=== PATIENT | female | born 1970 | race African-American/Black ===

== ENCOUNTER 2021-06-28 09:30 | Outpatient (RCR) | payer OTHER, SELFPAY ==
--- NOTE | 2021-04-23 14:05 | STOPEVAL ---
COMMUNICATION EVALUATION Thank you for referring Nisha Butts to [facility].? The patient is scheduled to be seen for therapy? 2x/week for 2 weeks. Please review, sign, date and return this plan of care ROSSY. I agree with and certify that the following plan of care is medically necessary. Referring Physician Date Attending Provider: PHYSICIAN NOT ON STAFF Therapy Assessment Status Assessment Status Assessment Status Evaluation Outpatient Past Medical History Past Medical History Source of Past Medical History Patient Neurological History Hx Cerebrovascular Accident (CVA) Yes: March 12, 2021 CVA , possible TIA/CVA weeks prior to this CVA? Cardiovascular History Hx Cardiac Disorders No Significant History Respiratory History Hx Respiratory Disorders No Significant History Gastrointestinal History Hx Gastrointestinal Disorders No Significant History Genitourinary History Hx Genitourinary Disorders No Significant History Musculoskeletal History Hx Musculoskeletal Disorders No Significant History Hematological History Hx Hematological Disorders No Significant History Endocrine History Hx Diabetes Yes: 07/2017 HEENT History Hx HEENT Disorders No Significant History Integumentary History Hx Skin Disorders No Significant History Reproductive History Hx Reproductive Disorders No Significant History Psychosocial History Hx Psychiatric Disorders No Significant History Pain History History of Any Previous or Ongoing No Significant History Instance of Pain Anesthesia History Hx Anesthesia Reactions No Significant History Evaluation Information Problem Diagnosis CVA Onset 03/12/21 Additional Evaluation Detail See Subjective Information Subjective Information Patient reports she woke up Query Text:As Reported By Patient/ the morning of the , tried Family to get up to go to the bathroom and realized she could not stand up. Reports her words were slurred and her tongue was tied up. Recalls everything but was unable speak. Reports her 16 year old daughter walked her to the car and brought her to the hospital. Patient went to [facility] and then was taken by ambulance to [facility] where she remained until the , then moved to the Rehabilitation department and stayed there until
--- NOTE | 2021-04-23 14:07 | STOPEVAL ---
COMMUNICATION EVALUATION Thank you for referring Nisha Butts to [facility].? The patient is scheduled to be seen for therapy? 2x/week for 2 weeks. Please review, sign, date and return this plan of care ROSSY. I agree with and certify that the following plan of care is medically necessary. Referring Physician Date Attending Provider: PHYSICIAN NOT ON STAFF Therapy Assessment Status Assessment Status Assessment Status Evaluation Outpatient Past Medical History Past Medical History Source of Past Medical History Patient Neurological History Hx Cerebrovascular Accident (CVA) Yes: March 12, 2021 CVA , possible TIA/CVA weeks prior to this CVA? Cardiovascular History Hx Cardiac Disorders No Significant History Respiratory History Hx Respiratory Disorders No Significant History Gastrointestinal History Hx Gastrointestinal Disorders No Significant History Genitourinary History Hx Genitourinary Disorders No Significant History Musculoskeletal History Hx Musculoskeletal Disorders No Significant History Hematological History Hx Hematological Disorders No Significant History Endocrine History Hx Diabetes Yes: 07/2017 HEENT History Hx HEENT Disorders No Significant History Integumentary History Hx Skin Disorders No Significant History Reproductive History Hx Reproductive Disorders No Significant History Psychosocial History Hx Psychiatric Disorders No Significant History Pain History History of Any Previous or Ongoing No Significant History Instance of Pain Anesthesia History Hx Anesthesia Reactions No Significant History Evaluation Information Problem Diagnosis CVA Onset 03/12/21 Additional Evaluation Detail See Subjective Information Subjective Information Patient reports she woke up Query Text:As Reported By Patient/ the morning of the , tried Family to get up to go to the bathroom and realized she could not stand up. Reports her words were slurred and her tongue was tied up. Recalls everything but was unable speak. Reports her 16 year old daughter walked her to the car and brought her to the hospital. Patient went to [facility] and then was taken by ambulance to [facility] where she remained until the , then moved to the Rehabilation department and stayed there until
[2021-04-23 14:30] VITALS: BP_SYST 150
--- NOTE | 2021-04-23 14:38 | PTOPEVAL ---
PHYSICAL THERAPY EVALUATION AND PLAN OF CARE 04-23-21 Thank you for referring Nisha Butts to [facility] for the diagnosis of CVA. She is scheduled to be seen for therapy? 2 x/week for 4 weeks. Please review, sign, date and return this plan of care ROSSY. I agree with and certify that the following plan of care is medically necessary. Referring Physician Date Attending Provider/ordering physician: Surendra Palma MD CC: per pt request: Nhan Anaya MD, general dr Ashanti Rodríguez MD, neurologist *PT Outpatient Evaluation Document 04/23/21 13:35 DIEUDONNE (Rec: 04/23/21 14:38 DIEUDONNE [id number]) Outpatient Past Medical History Past Medical History Source of Past Medical History Patient Neurological History Hx Cerebrovascular Accident (CVA) Yes: CVA x total of 3- previous CVA, with only slurred speech Cardiovascular History Hx Hypercholesterolemia Yes: meds Hx Hypertension Yes: meds Respiratory History Hx Asthma Yes Gastrointestinal History Hx Cholecystectomy Yes Hx Hernia Yes: surgical repair Genitourinary History Hx Genitourinary Disorders No Significant History Musculoskeletal History Hx Arthritis Yes: everywhere Hx Orthopedic Surgery Yes: R knee TKR November with manipulation Feb; Endocrine History Hx Diabetes Yes: meds Evaluation Information Problem Diagnosis CVA Onset Mar 12, 2021 Subjective Information had in pt rehab and d/c to Query Text:As Reported By Patient/ home Apr 16; had one fall at Family home with getting up to bedside commode; has been doing the leg exercises from the hospital; and the ones for her R TKR; Prior Level of Function Activity Level (Last 3 Months) 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
--- NOTE | 2021-04-23 15:30 | OTOPEVAL ---
OCCUPATIONAL THERAPY INITIAL EVALUATION REPORT 04/23/21 Thank you for referring Nisha Butts to [facility].? The patient is scheduled to be seen for therapy? 1-2x/week for 4 weeks. Please review, sign, date and return this plan of care ROSSY. I agree with and certify that the following plan of care is medically necessary. Referring Physician Date Referring physician: Surendra Palma MD CC per pt request: Nhan Anaya MD, general dr Ashanti Rodríguez MD, neurologist *OT Outpatient Evaluation Start: 04/23/21 14:30 Therapy Assessment Status Assessment Status Assessment Status Evaluation Outpatient Past Medical History Past Medical History Source of Past Medical History Patient Neurological History Hx Cerebrovascular Accident (CVA) Yes: March 12, 2021 CVA , possible TIA/CVA weeks prior to this CVA? Cardiovascular History Hx Cardiac Disorders No Significant History Respiratory History Hx Respiratory Disorders No Significant History Gastrointestinal History Hx Gastrointestinal Disorders No Significant History Genitourinary History Hx Genitourinary Disorders No Significant History Musculoskeletal History Hx Musculoskeletal Disorders No Significant History Hematological History Hx Hematological Disorders No Significant History Endocrine History Hx Diabetes Yes: 07/2017 HEENT History Hx HEENT Disorders No Significant History Integumentary History Hx Skin Disorders No Significant History Reproductive History Hx Reproductive Disorders No Significant History Psychosocial History Hx Psychiatric Disorders No Significant History Pain History History of Any Previous or Ongoing No Significant History Instance of Pain Anesthesia History Hx Anesthesia Reactions No Significant History Evaluation Information Problem Diagnosis CVA Onset 03/12/21 Subjective Information Patient is s/p acute care and Query Text:As Reported By Patient/ inpatient rehab stay following Family her CVA on 03/12/21. She states that she lives with her 16 year-old daughter, who helps her get dressed. Her son lives close by and helps her with showers. She walks around her home with a fidel cane for short distances independently . 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
--- NOTE | 2021-05-07 13:29 | PCOTNOTE ---
Patient did not show up for scheduled appointment this date. Called patient who stated that she is waiting for [facility] to pick her up.
--- NOTE | 2021-05-07 14:56 | PCSTNOTE ---
Therapist was informed that patient's ride did not show and she was unable to attend Speech Therapy session this date.
--- NOTE | 2021-05-07 16:19 | PCPTNOTE ---
pt did not show for today's appt; she called later, after appt and stated she had issues with her transportation and had to reschedule other appts.
--- NOTE | 2021-05-13 12:57 | PCSTNOTE ---
Patient arrived at 12:58 for a 12:30 appointment, therefore short session was completed.
[2021-06-14 09:59] VITALS: BP_SYST 90
--- NOTE | 2021-06-14 11:05 | OTOPEVAL ---
OCCUPATIONAL THERAPY RE-EVALUATION 06/14/21 Thank you for referring Nisha Butts to [facility].? The patient is scheduled to be seen for continue occupational therapy? 2x/week for 6 weeks. 1x/week land and 1x/week aquatic. Please review, sign, date and return this plan of care ROSSY. I agree with and certify that the following plan of care is medically necessary. Referring Physician Date Referring physician: Surendra Palma MD CC per pt request: Nhan Anaya MD, general dr Ashanti Rodríguez MD, neurologist *OT Outpatient Re-Evaluation Start: 04/23/21 14:30 Diagnosis CVA Onset 03/12/21 Subjective Information Patient presents today for OT Query Text:As Reported By Patient/ re-evaluation. She has not Family been seen in our clinic x1 month for transportation issues. She was initially evaluated on 04/23/21 and attended 3 follow up sessions. She reports that the left shoulder continues to be very week, stating It feel like my arm is going to fall out of the socket. She reports compliance with ROM HEP and wears her resting hand splint regularly. She continues to have assist with bathing, dressing, and clothing mgmt during toileting tasks. Pain Assessment Timing of Pain Assessment Timing of Pain Assessment Re-assessment Pain Scale Pain Scale Used Numeric (1 - 10) Self Report Pain Assessment Left Shoulder(s) Reported Pain Level 0 Pain Description Soreness Other Pain Description tender Right Knee(s) Reported Pain Level 6 Pain Description Aching,Soreness Pain Score Pain Score 6,0: Self Report Interventions Used Interventions Used By Clinicians Rest Upper Extremity Range of Motion Scapular/ Shoulder Range of Motion Left Scapular: Retraction Hypomobile Scapular: Protraction Hypomobile Scapular Downward Rotation Hypomobile Scapular Upward Rotation Hypomobile Shoulder Flexion - Active 20 Shoulder Flexion - Passive 90 Shoulder Extension - Active 25 Shoulder Extension - Passive 40 Shoulder Abduction - Active 40 Shoulder Abduction - Passive 90 Scapular/Shoulder Range of Motion At the start of care, patient Comments had no active movement in the shoulder.
--- NOTE | 2021-06-14 11:47 | PTOPEVAL ---
PHYSICAL THERAPY REEVALUATION AND UPDATED PLAN OF CARE 06-14-21 Refer to the clinical summary below for her status today, compared to the last assessment. The goals were partially achieved. Continue PT treatment 2x/wk for 4 weeks. Thank you for referring Nisha Butts to [facility].? Please review, sign, date and return this updated plan of care [facility]. I agree with and certify that the following plan of care is medically necessary. Referring Physician Date Attending Provider: Dr. Surendra Palma Document 06/14/21 11:00 DIEUDONNE (Rec: 06/14/21 11:47 DIEUDONNE [id number]) Assessment Status Re-evaluation Subjective Information Nisha reports: have not had Query Text:As Reported By Patient/ any falls, did have few Family stumbles, caught self on wall; walking with the fidel cane in the house; have been in home only- not going out into the community; have been doing butt squeezes and stretch knee exercises; has not been cooking or driving-- family assist her with that; have 2 entry steps and doing OK with them, when she leaves the house, someone always with her because she cannot drive; Pain Assessment Timing of Pain Assessment Timing of Pain Assessment Assessment Pain Scale Pain Scale Used Numeric (1 - 10) Self Report Pain Assessment Left Hip(s) Reported Pain Level 6 Pain Description Burning Pain Frequency Chronic,Continuous Lowest Pain Intensity 2 Greatest Pain Intensity 9 Pain Aggravating Factors Weight Bearing/Standing Right Knee(s) Reported Pain Level 7 Pain Description Aching,Dull Pain Frequency Chronic Lowest Pain Intensity 2 Greatest Pain Intensity 10 Pain Aggravating Factors Exercise/Activity,Walking, Weight Bearing/Standing Pain Behaviors Anxious,Guarding Pain Score Pain Score 7,6: Self Report Additional Pain Score Comments R TKR November 2020; have arthritis in L hip and need to have replacement but do not want any surgery Interventions Used Interventions Used By Clinicians Education,Exercise Lower Extremity Muscle Strength Testing General Lower Extremity Strength Gross Lower Extremity Strength functional strength of LE's: - single leg standing R and L 2-3 seconds
--- NOTE | 2021-06-19 12:24 | PCPTNOTE ---
Patient called & cancelled scheduled appointment this date due to being exposed to COVID and not feeling well.
--- NOTE | 2021-06-21 13:28 | PCPTNOTE ---
Patient called & cancelled scheduled appointment this date due to being exposed to covid and waiting on test results.
--- NOTE | 2021-06-21 13:56 | PCOTNOTE ---
Patient cancelled today's treatment due to COVID exposure. She also cancelled 06/19 for the same reason.
--- NOTE | 2021-06-25 09:59 | PCOTNOTE ---
Patient called & cancelled scheduled appointment this date due to not having transportation.
--- NOTE | 2021-06-25 10:32 | PCPTNOTE ---
Patient called & cancelled scheduled appointment this date due to having no transportation.
--- NOTE | 2021-07-09 12:41 | PCPTNOTE ---
Patient called & cancelled scheduled appointment this date due to transportation never arriving for pick-up.
--- NOTE | 2021-07-10 09:31 | PCPTNOTE ---
pt called and canceled reeval due to bad weather
--- NOTE | 2021-07-10 12:10 | PCOTNOTE ---
Patient called & cancelled scheduled appointment this date due to the weather.
--- NOTE | 2021-07-22 10:32 | STOPEVAL ---
SPEECH THERAPY DISCHARGE SUMMARY Thank you for referring Nisha Butts to [facility].?Please review, sign, date and return this discharge summary. I agree with this discharge. Referring Physician Date Attending Provider: PHYSICIAN NOT ON STAFF Assessment Status Discharge - Pt Not Present Outpatient Past Medical History Past Medical History Source of Past Medical History Patient Neurological History Hx Cerebrovascular Accident (CVA) Yes: March 12, 2021 CVA , possible TIA/CVA weeks prior to this CVA? ST Clinical Summary This patient was seen for an outpatient Speech Therapy evaluation and two follow up treatments focusing on lingual strength and precision and speech intelligibility. Patient complains that her tongue does not feel like my tongue, and that she feels her speech is slurred and not like her speech prior to the CVA. She presented with moderate lingual imprecision that became most apparent during diadochokinetic rate task. Although rates of rapid repetition of both lingual/labial sounds were judged to be within normal limits, precision of lingual tip sounds was moderately impaired and precision of posterior lingual sounds were judged to be significantly impaired. Patient indicated that this was an indication of how she felt about her speech when speaking. She was judged, however, to be 100% intelligible with mildly imprecise speech during productions of words, sentences and conversation. As noted, accuracy/precision decreased as demand to repeat quickly increased. The patient's memory and language skills were found to be within normal limits for immediate and recent memory, orientation, auditory comprehension, and word-finding/verbal expression. Patient was seen for two additional visits to address lingual precision and strength and overall speech skills and to instruct in use of home exercise program. At time of discharge, speech intelligibility was judged to be 100% accurate with mild-moderate lingual imprecise persisting but not affecting her overall speech intelligibility. Patient performed as follows on goals: 1.Demonstrate increased anterior/posterior lingual speech sound precision during tasks to address rapid repetition of speech sounds 90 % of the time. MET. 2. Complete lingual strengthening/resistance exercises 10 repetitions with good rate, range, and strength. MET. 3. Produce over-articulated mono-/bi-/poly-syllabic words with 90% accuracy. MET. 4. Produce over-articulated words at the phrase/sentence level with 90% accuracy. MET. 5. Develop intelligible,
--- NOTE | 2021-07-22 11:39 | PCOTNOTE ---
Patient called and re-scheduled her re-evaluations today due to having something else going on .
--- NOTE | 2021-07-22 11:56 | PCPTNOTE ---
pt called and canceled today's reevaluation.
--- NOTE | 2021-07-30 12:59 | PCPTNOTE ---
pt did not show for today's reeval appt;
--- NOTE | 2021-08-07 15:47 | PCPTNOTE ---
PHYSICAL THERAPY DISCHARGE 08-07-21 Attending Provider: Dr. Surendra Palma Patient:Nisha Butts Date of :1970 Ms. Butts has not returned for any further treatments since 06/28/2021, therefore she will be discharged at this time. She has been seen for a total of 6 PT visits, from April 23, 2021 to June 28, 2021. She called and canceled 6 and did not show for 2 appointments. The goals were not addressed. Thank you for referring Nisha to [facility]. Please review, sign, date and return this discharge summary ROSSY. I have been updated about the patient's current status and I agree with discharge from the above service at this time. Referring Physician Date
== END 2021-07-22 23:59 | disposition home or self-care (01) ==
LOC: ANHOT 09:30
PROVIDERS: PCP Family Medicine
DX: I63.9 Cerebral infarction, unspecified (principal)
CPT/HCPCS: 92507; 92523; 97014; 97110; 97116; 97161; 97166; G0283; L3806

== ENCOUNTER 2022-02-04 12:30 | Outpatient (RCR) | payer OTHER, SELFPAY ==
[2021-07-23 00:03] VITALS: BP_SYST 90
--- NOTE | 2021-08-08 15:45 | PCOTNOTE ---
OCCUPATIONAL THERAPY DISCHARGE NOTIFICATION 08/08/21 Patient:Nisha Butts Date of :1970 Patient has not returned for any further treatments since 06/28/2021, therefore she will be discharged at this time. She was initially evaluated on 04/23/21 and was only seen for 6 visits due to limited therapy attendance. She cancelled 6 visits and no showed for 2. The goals have been not addressed. Thank you for referring this patient to [facility]. Please review, sign, date and return this discharge summary ROSSY. I have been updated about the patient's current status and I agree with discharge from the above service at this time. Referring Physician Date Referring Physician: Dr. Surendra Palma
--- NOTE | 2021-11-12 14:00 | STOPEVAL ---
Thank you for referring Nisha Butts to [facility].? The patient is scheduled to be seen for therapy? 1x/week for 4 weeks. Please review, sign, date and return this plan of care ROSSY. I agree with and certify that the following plan of care is medically necessary. Referring Physician Date Attending Provider: Nhan Anaya, Therapy Assessment Status Assessment Status Assessment Status Evaluation Outpatient Past Medical History Past Medical History Source of Past Medical History Patient Neurological History Hx Cerebrovascular Accident (CVA) Yes: March 12, 2021 CVA , possible TIA/CVA weeks prior to this CVA? Cardiovascular History Hx Cardiac Disorders No Significant History Respiratory History Hx Respiratory Disorders No Significant History Gastrointestinal History Hx Gastrointestinal Disorders No Significant History Genitourinary History Hx Genitourinary Disorders No Significant History Musculoskeletal History Hx Musculoskeletal Disorders No Significant History Hematological History Hx Hematological Disorders No Significant History Endocrine History Hx Diabetes Yes: 07/2017 HEENT History Hx HEENT Disorders No Significant History Integumentary History Hx Skin Disorders No Significant History Reproductive History Hx Reproductive Disorders No Significant History Psychosocial History Hx Psychiatric Disorders No Significant History Pain History History of Any Previous or Ongoing No Significant History Instance of Pain Anesthesia History Hx Anesthesia Reactions No Significant History Evaluation Information Problem Diagnosis Dysarthria/Dysphagia Onset 03/2021 Cause CVA Subjective Information Patient reports that she had a Query Text:As Reported By Patient/ CVA in March, Family resulting in difficulty with speech and swallowing. Initially she had been on thickener that was eventually removed and that she was unable to drink through a straw. Currently, she reports she feels that her speech is weird, that she feels she can hear hesitations, possibly stuttering. She stated that her older daughter stated that she felt her mom (patient) was slurring her words. Patient reported that her younger daughter sometimes
--- NOTE | 2021-11-12 14:14 | PTOPEVAL ---
PHYSICAL THERAPY EVALUATION AND PLAN OF CARE Thank you for referring Nisha Butts to [facility].? The patient is scheduled to be seen for therapy? 1x/week for 4 weeks. Please review, sign, date and return this plan of care ROSSY. I agree with and certify that the following plan of care is medically necessary. Referring Physician Date Attending Provider: Nhan Anaya, Diagnosis CVA Onset 03/2021 Subjective Information Had a right knee replacement Query Text:As Reported By Patient/ in November 2020 and then a Family manipulation in February 2021 followed by a stroke in March 2021. States that she just wants her legs back and just wants them to work. Cannot identify her needs for physical therapy other than she wants her legs back. States that she wants to be able to bend her knee better to be able to sit on her toilet better. Tells me that she is not able to step into the shower and sit on the shower chair to shower. Prior Level of Function Home Setting Home Type Single Level Environmental Barriers Railing, None,Stairs, 2-4 Living Situation With Minor Child Self Report Pain Assessment Right Knee(s) Reported Pain Level 6 Pain Score Knee Range of Motion Right Knee Flexion Range of Motion - Active 100 Knee Extension Range of Motion - Active -3 Query Text: Lower Extremity Muscle Strength Testing Hip Strength Bilateral Hip Flexion Strength 4+ Good + Hip Extension Strength 4- Good - Hip Abduction Strength 4+ Good + Knee Strength Bilateral Knee Flexion Strength 4+ Good + Knee Extension Strength 4+ Good + Balance Assessment 5 Time Sit to Stand Time in Seconds 12.5 Gait Assessment 2 Minute Walk Total Distance Walked (feet) 216 2 Minute Walk Gait Speed Score 1.8 ft/second Stair Climbing Comments States she does not need to work on stairs in therapy because she only uses two as home and she will not go down anymore steps than that. 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 She presents today with
--- NOTE | 2021-11-27 13:53 | OTOPEVAL ---
OCCUPATIONAL THERAPY INITIAL EVALUATION 11/27/21 Thank you for referring Nisha Butts to [facility].? The patient is scheduled to be seen for therapy? 1-2x/week for 5 weeks. Please review, sign, date and return this plan of care ROSSY. I agree with and certify that the following plan of care is medically necessary. Referring Physician Date Referring Provider: Nhan Anaya, *OT Outpatient Evaluation Start: 11/27/21 12:37 Outpatient Past Medical History Past Medical History Source of Past Medical History Patient Neurological History Hx Cerebrovascular Accident (CVA) Yes: March 12, 2021 CVA , possible TIA/CVA weeks prior to this CVA? Cardiovascular History Hx Cardiac Disorders No Significant History Respiratory History Hx Respiratory Disorders No Significant History Gastrointestinal History Hx Gastrointestinal Disorders No Significant History Genitourinary History Hx Genitourinary Disorders No Significant History Musculoskeletal History Hx Musculoskeletal Disorders No Significant History Hematological History Hx Hematological Disorders No Significant History Endocrine History Hx Diabetes Yes: 07/2017 HEENT History Hx HEENT Disorders No Significant History Integumentary History Hx Skin Disorders No Significant History Reproductive History Hx Reproductive Disorders No Significant History Psychosocial History Hx Psychiatric Disorders No Significant History Pain History History of Any Previous or Ongoing No Significant History Instance of Pain Anesthesia History Hx Anesthesia Reactions No Significant History Evaluation Information Problem Diagnosis CVA Onset 03/2021 Cause CVA Subjective Information Patient presents today Query Text:As Reported By Patient/ reporting that she needs her Family resting hand splint adjusted. She states she would like to work on getting her left arm moving as much as possible. She states that her arm is completely non functional and she is unable to use the left arm in the shower or to help in the kitchen with cooking tasks. Prior Level of Function Activity Level (Last 3 Months) Hand Dominance Right Activity of Daily Living Ability Needs Some Help Indoor/Home Mobility Independent Community Mobility Independent Stairs Ability Independent Functional Cognition (Planning, Shopping Independent , Taking Medications) Cooking
--- NOTE | 2021-12-04 13:26 | STOPEVAL ---
SPEECH THERAPY REASSESSMENT AND DISCHARGE SUMMARY Thank you for referring Nisha Butts to [facility].?She has completed five Speech Therapy sessions and is being discharged with goals achieved and home program established. I agree with discharge due to goals achieved. Referring Physician Date Attending Provider: Nhan Anaya, Assessment Status Assessment Status Discharge This patient was seen for a Swallowing and Speech Evaluation on 11/12/21 and has been seen for four treatment session addressing speech and oral motor skills along with safe swallowing strategies and swallowing strengthening exercises. This patient was presented with a home exercise program to be completed in between sessions. She reports that she did complete both speech and swallowing exercises however she admitted that she did not do many of them frequently but did do some of them periodically. Patient stated that she understands and uses head flexion to prevent penetration /aspiration and she is using it more regularly. Patient reports that she is paying closer attention to her swallowing and is now rarely spilling liquid from around a cup when drinking although she does still have some issues with saliva, food, and drink sitting in what she calls the drool bowl in the left cheek yet she denies any instances of drooling saliva now. Today, the patient reports that she feels that her swallowing has been better. She reports she that paying more attention to her swallowing has facilitated improvement however she does not think the exercises have facilitated improvement (see th
--- NOTE | 2021-12-10 13:42 | PTOPEVAL ---
PHYSICAL THERAPY DISCHARGE NOTE Thank you for referring Nisha Butts to [facility]. Please review, sign, date and return this plan of care ROSSY. I agree with and certify that the following plan of care is medically necessary. Referring Physician Date Attending Provider: Nhan Anaya, MD Discharge Diagnosis CVA Onset 03/2021 Cause CVA Subjective Information States that is doing ok. Not Query Text:As Reported By Patient/ sure what she needs from Family therapy at this point. States she was on her feet all day yesterday cooking. Does not like doing floor transfers in therapy. Does not think that getting in and out of her bathtub is not a goal anymore. Knee Range of Motion Right Knee Flexion Range of Motion - Active 100 Knee Extension Range of Motion - Active 0 Query Text: Lower Extremity Muscle Strength Testing Hip Strength Bilateral Hip Flexion Strength 5 Normal Hip Extension Strength 4+ Good + Hip Abduction Strength 5 Normal Knee Strength Bilateral Knee Flexion Strength 5 Normal Knee Extension Strength 5 Normal Balance Assessment Cortez Balance Assessment 41/56 points) Gait Assessment 2 Minute Walk Total Distance Walked (feet) 216 2 Minute Walk Test Comments 1.8ft/second (initial eval) at re-assess on 12/10/21 patient was instructed to walk for as long as she can and she ambulated 1minute before stating she is being nice to you, I don't feel like doing this today. she then stopped the test. 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 Nisha demonstrates overall increased LE strength but was not able to demonstrate an increase in overall endurance. When asked to walk as long as she can before she needs a break, she walked 1 minute before stating she is just tired and does not want to go any further. She no longer as a goal to be
--- NOTE | 2022-01-02 14:40 | OTOPEVAL ---
OCCUPATIONAL THERAPY RE-EVALUATION REPORT 01/02/22 Patient presents for OT evaluation with chronic left sided weakness from CVA in Mar 2021. As described above, the patient is making progress with functional ROM and strength. She is also having less pain with active and passive ROM as her joint stiffness is also decreasing. She is more aware of her positioning and has made changes to restrict prolonged UE positioning. Continued skilled OT indicated to progress her HEP, to continue to work on functional ROM and strengthening. Thank you for referring Nisha Butts to [facility].? The patient is scheduled to be seen for therapy? 1-2x/week for 5 weeks. Please review, sign, date and return this plan of care ROSSY. I agree with and certify that the following plan of care is medically necessary. Referring Physician Date Referring Provider: Nhan Anaya, Re-Evaluation Information Problem Diagnosis CVA Onset 03/2021 Cause CVA Subjective Information Patient reports compliance Query Text:As Reported By Patient/ with left UE HEP. She states Family that she doesn't think her arm has made any progress functionally. Pain Assessment Timing of Pain Assessment Timing of Pain Assessment Pre-Treatment Pain Scale Pain Scale Used Numeric (1 - 10) Self Report Pain Assessment Buttock(s) Reported Pain Level 7 Pain Description Soreness Right Knee(s) Reported Pain Level 6 Pain Description Soreness,Tightness Pain Score Pain Score 7,6: Self Report Interventions Used Interventions Used By Clinicians Exercise,Rest Upper Extremity Range of Motion Scapular/ Shoulder Range of Motion Left Shoulder Flexion - Active 65 Shoulder Extension - Active 45 Shoulder Abduction - Active 65 Scapular/Shoulder Range of Motion Shoulder flexion improved from Comments 40* Shoulder abduction improved from 60* Elbow/Forearm Range of Motion Left Elbow Flexion - Active 130 Elbow Extension - Active 0 Elbow/Forearm Range of Motion Comments Supination: neutral Pronation: WFL Elbow flexion remained WFL at 130* Elbow extension improved from -10* Wrist Range of Motion Left Wrist Flexion - Active 65 Wrist Extension - Active 40 Wrist Range of Motion Comments Wrist flexion improved from 45* Wrist extension improved from 30* Finger Range of Motion Left Index Finger Tip to Base of Palm - 10 Active Middle Finger Tip to Base of Palm - 8 Active Ring Finger Tip to Base of Palm - Active 8 Little Finger Tip to Base of Palm - 8 Active
--- NOTE | 2022-02-04 13:05 | OTOPDC ---
Evaluation Information Assessment Status Discharge Diagnosis CVA Onset 03/2021 Subjective Information Patient has been participating in outpatient OT x10 weeks. Treatments have been focusing on increasing functional ROM and strength of the left , hemiparetic UE. She reports non compliance with the HEP. Reported Pain Level Pain Score 6,7: Self Report Additional Pain Score Comments Reports chronic tailbone pain. Assessment OT Clinical Summary Patient presents for OT evaluation with chronic left sided weakness from CVA in Mar 2021. Unfortunately at this time she has reached a progress platau with functional ROM, strength, and use of the left UE. She has HEP to continue to work on ROM, flexibility, and strength. Discharging today with HEP. Plan of Care OT Services Indicated No
== END 2022-02-05 08:23 | disposition home or self-care (01) ==
LOC: ANHOT 12:30
PROVIDERS: PCP Family Medicine; Visit Provider Family Medicine
DX: I63.9 Cerebral infarction, unspecified (principal); I69.328 Other speech and language deficits following cerebral infarction
CPT/HCPCS: 92507; 92523; 92610; 97014; 97110; 97112; 97162; 97165; 97530; 97763; G0283

== ENCOUNTER 2022-06-23 15:30 | Outpatient (RCR) | payer OTHER, SELFPAY ==
--- NOTE | 2022-05-08 17:58 | PTOPEVAL1 ---
Assessment and note entered by Ronak Rivera, PT Evaluation Information Assessment Status Evaluation Diagnosis L knee pain Onset CVA last year Subjective Information Patient report L knee pain that is worse than the R knee pain and her back pain. She reports it is making it hard for her to get in and out of cars, stand up and sit down, and walk. She reports no falls but that the knee will lock out while walking. She states even though she is bone on bone, she will not do a knee replacement because of bad experience with the R knee. Reported Pain Level Pain Score 8: Self Report Additional Pain Score Comments Will radiate down to the L fibular head Assessment PT Clinical Summary Nisha is a 51 year old female coming into the clinic for L knee pain. She has decreased weakness on the L side of her body from a previous CVA. She also has decreased range of motion in the knee joint. She walks with hyperextension on the L leg in stance phase. Patient should benefit from skilled physical therapy to work on improving range of motion which will make car and other transfers easier. Patient also will do strengthening, gait training, and education along with modalities for pain relief and reduce swelling and inflammation. Plan of Care Interventions Electrical Stimulation,Gait Training,Hot Pack/Cold Pack,Manual Therapy,Neuro Re-education,Patient/ Caregiver Education,Therapeutic Activities, Therapeutic Exercise,Ultrasound PT Services Indicated Yes Treatment Frequency and 1x/wk for 4 weeks Duration These treatments will address the objective and functional deficits as defined above. The patient will be advanced safely and appropriately in order for the patient to progress towards his/her prior level of function. Additional exercises will be introduced and as well as a comprehensive home exercise program upon discharge, if needed, ?to ensure carryover of functional gains achieved in the clinic. This treatment plan has been reviewed and agreement upon by the patient.
--- NOTE | 2022-06-23 16:00 | PTOPDC ---
Assessment and note entered by Ayesha Christensen, PT Evaluation Information Assessment Status Discharge Diagnosis L knee pain Onset CVA last year Subjective Information Nisha reports: only use ice when her helper is there; have done the sitting exercises at home, have not been doing the standing exercises; when do the exercises, hurts and do not do them; is tired of having troubles moving around, L weakness and pain; have help with bathing, need help getting onto tub seat; helper does cooking, house hold tasks; pt does on line shopping; have not had any falls; use the cane do not want to fall; reinforced with pt--she can put ice on her knee herself, she states ice goes in a cover that has a strap she cannot do with one hand; discussed with her to use towel and just place gel ice over knee, do not have to use the straps Reported Pain Level Pain Score Self Report Additional Pain Score Comments pain range of 0-8/10 L knee; sore distal to knee cap and medial/lateral knee; increase pain with activity/ walking 10 minutes; L leg gets weak, heavy and drags before pain gets worse; decrease pain with sitting, rest, ice; problems with lying on her side, leg hurts--educated on use of pillow between knees and ankles when on her side; Assessment PT Clinical Summary Nisha has received 5 PT sessions for L knee pain. Compared to the initial eval: pain has decreased at the worst rating from 10 to 8/10 and at low rating from 8 to 0/10; knee ROM has increased in sitting to 0-120'; increase strength of L knee and hip with supine and standing exercises; 5 reps sit/flying i instructor 19 seconds and 2 minute walking test distance is 300'. The goals were partially achieved. Discharge PT services. She is to continue with her HEP and increase walking as tolerated. Plan of Care PT Services Indicated No
== END 2022-06-24 13:44 | disposition home or self-care (01) ==
LOC: ANHPT 15:30
PROVIDERS: PCP Family Medicine; Visit Provider Family Medicine
DX: M25.562 Pain in left knee (principal)
CPT/HCPCS: 97035; 97110; 97140; 97161; 97530